=== PATIENT | male | born 1980 | race Caucasian/White ===

== ENCOUNTER 2018-10-04 15:51 | Emergency (ER) | payer OTHER ==
[~2018-10-04] VITALS: Ht 180.3 cm; Wt 83.9 kg
[~2018-10-04 15:51] MED LIST: ULTRAM 50MG TAB50 MG PO
[2018-10-04] MEDS ORDERED: KEFLEX500 M1 PO (19:41)
[2018-10-04] MEDS ORDERED: NORCO 10-325 T1 EACH PO (19:41)
[2018-10-04 19:59] VITALS: BP 135/87
--- NOTE | 2018-10-07 14:09 | O ---
[facility] [place] [address] OPERATIVE REPORT Name: YULIUMESH TIMOTHY Room #: [facility] [id number] Admission: 10/04/18 ������������������ Attend Phys: Discharge: 10/04/18 ������������������ Date of : 82 Report #: [id number] THIS REPORT FOR: //name// CC: Roberto Carlos Guidryance Humberto DATE OF SERVICE: 10/04/2018 CHIEF COMPLAINT: Left index finger partial amputation. HISTORY OF PRESENT ILLNESS: This is a 38-year-old gentleman who cut his finger with a table saw. Denies any other injury. No other history that is contributory. He is up-to-date on his tetanus. ALLERGIES: None. SOCIAL HISTORY: Significant for tobacco, alcohol and THC. REVIEW OF SYSTEMS: As above. PHYSICAL EXAMINATION: VITAL SIGNS: Temperature is 36.9, blood pressure is 142/73, pulse is 79, respiratory rate is 22. EXTREMITIES: Examination of the left upper extremity notes he has on his index finger a dorsal abrasion and then an amputation of the distal 5 mm of his distal phalanx of his index finger. DESCRIPTION OF PROCEDURE: The patient's left index finger was examined and irrigation of the tip of his index finger under sterile conditions was performed. Subsequently, a #15 blade was utilized to elevate the surrounding soft tissue from the end of the distal phalanx. The oblique distal phalangeal portion of the fracture extending beneath the nail bed was then removed utilizing a large rongeur with a good clean tip of the bone noted. The irregular pattern palmar flap was then shaped with an iris type scissors and subsequently the wound was closed with 3-0 nylon suture in a simple stitch manner. The wound was then dressed with Xeroform, 4 x 4s, and sterile soft compressive dressing was placed. Prior to the procedure, a tourniquet had been placed. This was then removed. The finger was pink and warm without any deficits noted. IMPRESSION: Status post distal phalangeal amputation, left index finger. [address] [address] OPERATIVE REPORT Name: UMESH ROLDAN Room #: [facility]P [facility] [id number] Admission: 10/04/18 ������������������ Attend Phys: Discharge: 10/04/18 ������������������ Date of : 82 Report #: [id number] PLAN: The plan would be to have the patient continue with oral antibiotics and oral pain medication. He is to follow up with me in 1 week in my office. ��������������������������������������������� <ELECTRONICALLY SIGNED> ���������������������������������������� By: Eliu Parham MD ��������������������������������������������� 10/07/18 [id number] Eliu Parham MD /nt
== END 2018-10-04 20:00 | disposition home or self-care (01) ==
LOC: ER 15:51
DX: S68.121A Partial traumatic metacarpophalangeal amputation of left index finger, initial encounter (principal); F17.210 Nicotine dependence, cigarettes, uncomplicated; W31.2XXA Contact with powered woodworking and forming machines, initial encounter; Y92.89 Other specified places as the place of occurrence of the external cause; Y93.89 Activity, other specified; Y99.8 Other external cause status